=== PATIENT | female | born 1965 | race Caucasian/White ===

== ENCOUNTER 2017-07-06 14:28 | Emergency (ER) | payer OTHER ==
[~2017-07-06] VITALS: Ht 167.6 cm; Wt 81.8 kg
[2017-07-06] MEDS ORDERED: RT ADVAIR 128 DISKUS IH (14:32)
[2017-07-06 14:38] VITALS: TEMP 99
[2017-07-06] MEDS ORDERED: FLEXERIL 1010 MG/TAB PO (17:42)
[2017-07-06 18:00] VITALS: BP 150/89; PULSE 88
== END 2017-07-06 18:00 | disposition home or self-care (01) ==
LOC: COL.ER 14:28
DX: M54.2 Cervicalgia (principal); M25.511 Pain in right shoulder; R40.2412 Glasgow coma scale score 13-15, at arrival to emergency department; R20.2 Paresthesia of skin; J45.909 Unspecified asthma, uncomplicated; Z79.51 Long term (current) use of inhaled steroids; V49.40XA Driver injured in collision with unspecified motor vehicles in traffic accident, initial encounter

== ENCOUNTER 2021-03-29 00:18 | Emergency (ER) | payer SELFPAY ==
[~2021-03-29] VITALS: Ht 167.6 cm; Wt 81.8 kg
[~2021-03-29 00:18] MED LIST: ALBUTEROL SULFAT3 M3 IH; AMOXICILLIN 50500 MG PO; DUO-KAPS1 CAP PO; FLEXERIL 1010 MG/TAB PO; IRON1 CHI; LEVAQUIN 5500 MG/TA1 PO; MUCINEX 60600 MG/TA1 PO; MUCINEX D1 TER PO; RT ADVAIR 128 DISKUS IH; RT ADVAIR 528 DISKUS IH; VITAMIN B1225 MCG PO; ZITHROMAX 250M250 MG PO
[2021-03-29 00:24] VITALS: TEMP 97.4
[2021-03-29] MEDS ORDERED: AMOXICILLIN 8751 TAB PO (01:42)
[2021-03-29 02:03] VITALS: BP 113/70; PULSE 76
== END 2021-03-29 02:03 | disposition home or self-care (01) ==
LOC: COL.ER 00:18
DX: K11.8 Other diseases of salivary glands (principal); J45.909 Unspecified asthma, uncomplicated; Z79.899 Other long term (current) drug therapy

== ENCOUNTER 2021-09-22 11:28 | Inpatient (IN) | payer SELFPAY ==
[~2021-09-22] VITALS: Ht 167.6 cm; Wt 77.2 kg
[~2021-09-22 11:28] MED LIST changes: +AMOXICILLIN 8751 TAB PO
[2021-09-22 12:24] LABS: COLLECTION METHOD CLEAN CATCH
[2021-09-22 12:35] LABS: MEAN CELL VOLUME 85 fl (80.0-100.0); MEAN CORPUSCULAR HGB CONC 32 g/dl (33.0-37.0); MEAN PLATELET VOLUME 10.7 fl (7.4-10.4); PLATELET COUNT 296 K/mm3 (130-400); RED BLOOD COUNT 3.26 M/mm3 (4.10-5.30); REDCELL DISTRIBUTION WIDTH-CV 12.8 % (11.5-14.5)
[2021-09-22 12:39] LABS: HEMATOCRIT 27.6 % (37.0-47.0); HEMOGLOBIN 8.9 g/dl (12.5-16.0); MEAN CORPUSCULAR HEMOGLOBIN 27 pg (27-31)
[2021-09-22 12:43] LABS: AMORPHOUS CRYSTAL Present (NOT PRESENT); MUCOUS Present (NOT PRESENT); PH 5 (5-8); SQUAMOUS EPITHELIAL 20-50 /hpf (0-10); URINE APPEARANCE Turbid (CLEAR/HAZY); URINE BACTERIA Many /hpf (NONE SEEN); URINE BILIRUBIN Negative (NEGATIVE); URINE BLOOD 1+ (NEGATIVE); URINE COLOR Amber (YELLOW); URINE GLUCOSE Negative (NEGATIVE); URINE KETONE Negative (NEGATIVE); URINE LEUKOCYTE ESTERASE 2+ (NEGATIVE); URINE NITRATE Negative (NEGATIVE); URINE PROTEIN(semi-quant) 2+ (NEGATIVE); URINE UROBILINOGEN Negative (NEGATIVE)
[2021-09-22 12:56] LABS: ALBUMIN 2.2 gm/dL (3.5-5.0); BILIRUBIN,TOTAL 1.1 mg/dL (0.2-1.2); C-REACTIVE PROTEIN 27.55 mg/dL (0.00-0.50); CALCIUM 8.6 mg/dL (8.4-10.2); CREATININE, serum 2.45 mg/dL (0.57-1.11); POTASSIUM 3.4 mmol/L (3.5-4.5); TOTAL PROTEIN 7.7 gm/dL (6.2-8.1)
[2021-09-22 13:04] LABS: BAND 1 % (0-10); HYPOCHROMIA 1+; LYMPHOCYTE 5 % (20.0-51.0); NEUTROPHILS 93 % (42.0-75.2); PLATELET ESTIMATE NORMAL (NORMAL)
[2021-09-22] MEDS ORDERED: RT ADVAIR 228 DISKUS IH (14:23)
[2021-09-22] MEDS ORDERED: VENTOLIN0.09 MG IH (14:41)
[2021-09-22 15:34] VITALS: BP 97/53; PULSE 93; TEMP 100.5
[2021-09-22 17:29] VITALS: BP 94/48; PULSE 87; TEMP 98
[2021-09-22 19:46] VITALS: BP 103/57; BP 118/72; PULSE 85; PULSE 90; TEMP 97.4; TEMP 98.4
[2021-09-22 23:49] VITALS: BP 111/55; PULSE 86; TEMP 98.1
[2021-09-23 04:02] VITALS: BP 92/58; PULSE 88; TEMP 98.3
--- NOTE | 2021-09-23 06:30 | NUR ---
ASSESSMENT COMPLETE FOR THIS SHIFT. PT RESTING IN BED WATCHING TV. PT DENIED PAIN, PALPITATIONS, N,V,D, SOB OR DIZZINESS. PT HAD A PRETTY GOOD NIGHT, EXCEPT FOR ONE TIME TONIGHT WHEN I WENT IN TO CHECK ON HER AND FOUND HER CRYING. I ASKED HER, "WHAT'S WRONG?" PT STATED TODAY(THIS MORNING) WAS HER DAUGHTER'S BIRTHDAY (WHO AT 20YRS OLD). WE TALKED FOR AWHILE, UNTIL SHE SEEMED TO FEEL A LITTLE BETTER. PT WAS AWAKE MOST OF THE NIGHT. PT EXPRESSED NO OTHER NEEDS. CALL LIGHT WITHIN REACH.
[2021-09-23 07:05] LABS: BASO % 0.3 % (0.0-2.0); EOS % 0.1 % (0.0-4.0); GRAN # 8.7 K/mm3 (1.4-6.5); GRAN % 82.8 % (42.2-75.2); LYMPH # 1.2 K/mm3 (1.2-3.4); MEAN CELL VOLUME 85 fl (80.0-100.0); MEAN CORPUSCULAR HGB CONC 32 g/dl (33.0-37.0); MEAN PLATELET VOLUME 11.4 fl (7.4-10.4); MONO # 0.6 K/mm3 (0.1-0.6); MONO % 5.2 % (1.7-9.3); PLATELET COUNT 261 K/mm3 (130-400); RED BLOOD COUNT 2.97 M/mm3 (4.10-5.30)
[2021-09-23 07:09] LABS: HEMATOCRIT 25.2 % (37.0-47.0); HEMOGLOBIN 8.1 g/dl (12.5-16.0); MEAN CORPUSCULAR HEMOGLOBIN 27 pg (27-31)
[2021-09-23 07:18] LABS: CALCIUM 7.9 mg/dL (8.4-10.2); CREATININE, serum 1.35 mg/dL (0.57-1.11); POTASSIUM 3.7 mmol/L (3.5-4.5)
[2021-09-23 07:52] VITALS: BP 99/56; PULSE 85; TEMP 98.4
[2021-09-23 11:05] VITALS: BP 105/60; PULSE 87; TEMP 98.4
--- NOTE | 2021-09-23 12:04 | NUR ---
PATIENT RESTING COMFORTABLY IN BED. AMBULATES TO BATHROOM AND PERFORMS ADLS WITH NO NURSING STAFF ASSISTANCE. NO COMPLAINTS OF PAIN OR NEEDS AT THIS TIME. PATIENT STATES SHE IS TRYING TO REBUILD STRENGTH. ATE A VERY GOOD BREAKFAST. STEADY GAIT, POTASSIUM REPLACED.
--- NOTE | 2021-09-23 16:01 | NUR ---
[employer] unable to meet with patient for intake assessment/discharge planning as nursing at patient bedside; will re-attempt as possible.
[2021-09-23 16:18] VITALS: BP 110/59; PULSE 83; TEMP 98.6
--- NOTE | 2021-09-23 17:47 | NUR ---
PATIENT RESTING IN BED MOST OF THE DAY. AMBULATES IN ROOM TO BATHROOM AND PERFORMS ADLS WITH NO NURSING INTERVENTIONS. IV FLUIDS AT 125MLS/HR CONTINUED. SOME COMPLAINTS OF PAIN IN LOWER BACK ON URINATION. COMPLAINTS OF CONSISTENT LOOSE BOWEL MOVEMENTS. IMODIUM ORDERED PRN. TYLENOL GIVEN AT ENDO OF SHIFT FOR PAIN. PATIENT VERY ADAMENT ABOUT PARTICIPATING IN CARE AND DOING EVERYTHING SHE CAN TO GET BETTER TO GO HOME. PLAN IS TO DC IS H&H STABLE IN THE MORNING.
[2021-09-23 19:25] VITALS: BP 125/64; PULSE 97; TEMP 97.6
[2021-09-23 23:31] VITALS: BP 129/66; PULSE 91; TEMP 98.2
[2021-09-24 04:47] VITALS: BP 145/82; PULSE 90; TEMP 98.4
--- NOTE | 2021-09-24 06:00 | NUR ---
ASSESSMENT COMPLETE FOR THIS SHIFT, PT RESTING IN BED WATCHING A VIDEO ON HER PHONE. PT COMPLAIN OF BACK PAIN. PT GIVEN TYLENOL ONCE SHE WAS ABLE TO HAVE IT AGAIN. PT DENIED PALPITATIONS, N,V, SOB OR DIZZINESS. PT ALSO DENIED DIARRHEA THIS SHIFT. PT SEEMED MUCH MORE UPBEAT THIS SHIFT. PT EXPRESSED NO OTHER NEEDS AT THIS TIME. CALL LIGHT WITHIN REACH.
[2021-09-24 06:53] LABS: BASO % 0.4 % (0.0-2.0); EOS % 0.8 % (0.0-4.0); GRAN # 3.7 K/mm3 (1.4-6.5); GRAN % 69.9 % (42.2-75.2); LYMPH # 1.1 K/mm3 (1.2-3.4); MEAN CELL VOLUME 86 fl (80.0-100.0); MEAN CORPUSCULAR HEMOGLOBIN 28 pg (27-31); MEAN CORPUSCULAR HGB CONC 32 g/dl (33.0-37.0); MONO # 0.4 K/mm3 (0.1-0.6); MONO % 7.5 % (1.7-9.3); PLATELET COUNT 251 K/mm3 (130-400)
[2021-09-24 07:13] LABS: CREATININE, serum 1.03 mg/dL (0.57-1.11); POTASSIUM 3.8 mmol/L (3.5-4.5); TOTAL PROTEIN 6.7 gm/dL (6.2-8.1)
[2021-09-24 07:31] LABS: BILIRUBIN,TOTAL 0.2 mg/dL (0.2-1.2)
[2021-09-24 08:00] VITALS: BP 129/67; PULSE 96; TEMP 99.3
[2021-09-24] MEDS ORDERED: OMNICEF 300MG300 MG PO (08:59)
--- NOTE | 2021-09-24 10:54 | NUR ---
PATIENT EXPRESSED CONCERNS ABOUT GOING HOME TODAY DUE TO PERSISTENT LOOSE BOWEL MOVEMENTS AND LOWER BACK PAIN ON URINATION. PROVIDER RECOOMENDED INCREASING PROBIOTICS, FLUIDS AND AZOS. PLAN TO DISCHARGE THIS MORNING. PATIENT COMPLAINING OF MILD LOWER BACK PAIN AND NAUSEA. 4MG ZOFRAN IV GIVEN AND 500MG PO TYLENOL GIVEN.
== END 2021-09-24 11:50 | disposition home or self-care (01) | DRG 872 ==
LOC: COL.ER 11:28 → MEDICAL 14:01
PROVIDERS: Family Medicine; Physician Assistant; ADMIT Student in an Organized Health Care Education/Training Program
DX: A41.9 Sepsis, unspecified organism (principal); N17.9 Acute kidney failure, unspecified; E87.1 Hypo-osmolality and hyponatremia; A08.39 Other viral enteritis; N12 Tubulo-interstitial nephritis, not specified as acute or chronic; Q61.3 Polycystic kidney, unspecified; J45.909 Unspecified asthma, uncomplicated; E87.6 Hypokalemia; D64.9 Anemia, unspecified; E86.1 Hypovolemia; B96.20 Unspecified Escherichia coli [E. coli] as the cause of diseases classified elsewhere; Z20.822 Contact with and (suspected) exposure to COVID-19
CPT/HCPCS: 99222-AI; 99232-AI; 99239; J0696; J1644; J2405; J7030; J7120